=== PATIENT | male | born 1980 | race Two or more races ===

== ENCOUNTER 2025-03-07 21:10 | Emergency (ER) | payer BC, SELFPAY ==
[2025-03-07 21:13] VITALS: BP 176/99
[2025-03-07 21:35] LABS: Hematocrit 41.1 % (39.0-52.0); Hemoglobin 14.0 g/dL (13.0-18.0); Mean Corp Hgb Conc. 34.1 g/dL (33.0-37.0); Mean Corpuscular Volume 89.2 fL (80.0-94.0); Nucleated Red Blood Cells % 0 % (-); Platelet Count 240 10^3/uL (130-400); Red Cell Dist. Width 12.8 % (11.5-14.5)
[2025-03-07 21:49] LABS: ALT (SGPT) 27 U/L (0-50); AST (SGOT) 27 U/L (17-59); Albumin 4.6 g/dl (3.5-5.0); Alkaline Phosphatase 43 U/L (38-126); Blood Urea Nitrogen 21 mg/dl (9-20); Calcium 9.8 mg/dl (8.4-10.2); Carbon Dioxide 26 mmol/L (22-30); Chloride 102 mmol/L (98-107); Glucose 107 mg/dl (70-99); Potassium 3.6 mmol/L (3.5-5.1); Sodium 137 mmol/L (135-145); Total Protein 7.5 g/dl (6.3-8.2); eGFR > 60.00
[2025-03-07 22:01] LABS: Troponin I < 0.012 ng/ml
[2025-03-07 23:29] VITALS: BP 163/82
[2025-03-08] VITALS: BP 141/88
[2025-03-08 01:00] VITALS: BP 115/76
--- NOTE | 2025-03-08 01:48 | ED.GENMED ---
History of Present Illness
General
Chief Complaint: Cardiac Symptoms
Source: patient
Exam Limitations: none
Time Seen by Provider: 03/08/25 01:23
Nursing documentation reviewed up to this point in time: agreed with
History of Present Illness
History of Present Illness:
45-year-old male with no past medical history who presents to the ER today with concerns of numbness and pain in his left shoulder, numbness in his left arm as well as numbness in his left leg. He describes this sensation as tingling. He denies
decreased sensation. He feels like parts of the left side of his body feel weird and different compared to the right. He has never had this before. He reports that compared to the onset of his symptoms, his symptoms have slowly been improving.
He has no chest pain. He has no family history of cardiac disease. He reports that when he is having the symptoms at home, family member checked his blood pressure and he noted to be very high. He does have a history of sleep apnea and uses CPAP.
He does not have any history of high blood pressure and does not take any medications for it. He does not smoke. He does not take any medication for cholesterol. He follows closely with his primary care provider. He denies headache. He denies
any neck or head trauma. He has no confusion, difficulty walking, facial droop, facial numbness or tingling at this time.
Review of Systems
Review of Systems
All Other Systems: ROS reviewed and negative except as documented in HPI and ROS
Phy Exam
Physical Exam
Physical Exam:
GEN: Well appearing, NAD, WDWN
Eyes: PERRLA, EOMs intact, no scleral icterus
HENT: NCAT, oral mucosa moist
Lungs: CTAB, no wheezes, rales, rhonchi, normal chest wall excursion
Cardiac: RRR, no M/R/G, no peripheral edema. Radial pulses 2+ bilat
Abdomen: Abdomen nondistended
Neuro: AO x 3, no focal deficits, normal finger-nose, [id number], normal gait, 5 out of 5 strength of bilateral upper extremities, sensation intact, NIH 0
MSK: No gross deformity or ecchymosis.
Skin: No rashes, petechiae. Normal color, no pallor or jaundice.
Psych: Calm, cooperative, proper hygiene
Scores
NIH Stroke Score
Level of Consciousness: 0 - Alert
LOC Questions: 0-Answers both correctly
LOC Commands: 0-Performs both correctly
Best Horizontal Gaze: 0-Normal
Visual Woo: 0=Normal, no visual loss
Facial Palsy: 0=Normal, symmetrical
Motor - Right Arm: 0=No drift 10 seconds
Motor - Left Arm: 0=No drift 10 seconds
Motor - Right Le-No drift 5 seconds
Motor - Left Le-No drift 5 seconds
Limb Ataxia: 0-Absent
Sensation: 0-Normal
Best Language: 0-No aphasia
Dysarthria: 0-Normal
Extinction and Inattention: 0-No abnormality
NIH Total Score:: 0
Course
Orders/Labs/Results
Orders:
Orders
03/07/25 21:15
Electrocardiogram (*1) Urgent
Reason for Study: Hypertension, Benign
EKG- Treatment ONCE
03/07/25 21:25
Complete Blood Count/With Diff Urgent
Comprehensive Metabolic Panel Urgent
Troponin I Urgent
03/08/25 01:59
CT Head W/o Iv Contrast Urgent
Comment:
Reason For Exam: Left sided paresthesias
03/08/25 02:04
Troponin I Urgent
Abnormal Lab Results
03/07/25
21:25
RBC 4.61 L 10^6/uL
(4.70-6.10)
Absolute Lymphs (auto) 4.5 H 10^3/uL
(1.2-3.4)
Absolute Monos (auto) 0.9 H 10^3/uL
(0.1-0.6)
Neutrophils % 39.5 L %
(42.2-75.2)
Monocytes % 9.9 H %
(1.7-9.3)
BUN 21 H mg/dl
(9-20)
Glucose 107 H mg/dl
(70-99)
03/07/25 21:25
03/07/25 21:25
Vital Signs
Initial and Last Documented VS:
Initial Vital Signs
Temp Pulse Resp BP Pulse Ox
97.6 F 68 16 176/99 100
03/07/25 21:13 03/07/25 21:13 03/07/25 21:13 03/07/25 21:13 03/07/25 21:13
Last Documented Vital Signs
Temp Pulse Resp BP Pulse Ox
97.6 F 57 21 134/90 98
03/07/25 21:13 03/08/25 02:45 03/08/25 02:45 03/08/25 02:00 03/08/25 05:07
MDM/Problems Addressed
Differential Diagnosis Includes:
ddx include herniated discs/nerve root impingement, electrolyte derangement, ACS, space occupying lesion, MS, CVA,
MDM/Problems Addressed:
45-year-old male presents to the ER today with concerns of left shoulder pain and intermittent left-sided paresthesias. He has never had this before. On physical exam he is well-appearing in no acute distress. He has no objective sensory loss.
His NIH is 0. He has no focal neurodeficit. He has normal gait. No facial droop. Normal speech. No chest pain at this time. Labs reviewed, lab work unremarkable. Troponin undetectable x 2. ECG shows normal sinus rhythm with rate of 79 with
no ischemic changes. However CAT scan of the head which showed no acute findings. Discussed case with ED attending. Patient symptoms are minimal at this time, could be related to cervical nerve root impingement, patient will require further
workup with neurology and his PCP. Patient expressed understanding. Discussed strict return precautions.
Chronic conditions affecting care:
n/a
*Pulse Oximetry
SaO2: 98
Oxygen Mode of Delivery: Room air
Patient hypoxic: no
*Critical Care Note
Total Time (30-74mins, 75-104mins- exclusive of procedures): Not Applicable
Data Reviewed
Review of Other/Old Records Reveals: Records (No prior ER physician documentation to review, no discharge summaries to review)
ED Attending Note
-
Portions of this chart may have been created with voice recognition software.� Occasional wrong word or��sound alike� substitutions may have occurred due to the inherent limitations of voice recognition software.
Discharge Plan
Departure
Patient Disposition: Home (Routine Discharge)
Date of Disposition: 03/08/25
Time of Disposition: 04:53
Patient with high blood pressure during this ER visit?: Yes
Condition: Good
Discharge Problem:
Paresthesias, Left shoulder pain
Instructions: BLOOD PRESSURE
Referrals:
Lesley Patel MD [Non-Admitting Privileges, Psychiatry] - Call in 1-3 days for appt
Joey Patel DO [Family Provider, Family Practice]
Activity Restrictions/Additional Instructions:
Please call the attached number to schedule appointment with Dr. Patel's office for further evaluation. Please continue monitor symptoms. Please follow-up with your primary care provider. PLEASE RETURN TO THE ER SHE DEVELOP AN ACUTE WORSENING
RETURN OR SYMPTOMS, INABILITY AMBULATE, CONFUSION, SPEECH CHANGES, FACIAL DROOP, CHEST PAIN, SHORTNESS OF BREATH, OR ANY OTHER SYMPTOMS WORRISOME TO YOU.
Interventions
Interventions:
*General Assessment Last Done: 03/07/25 23:57
*Neglect/Abuse Screening Last Done: 03/07/25 21:16
*ED COVID-19 Vaccine History Last Done: 03/07/25 23:57
*ED Influenza Vaccine History Last Done: 03/07/25 23:57
[facility] Risk Assessment Tool Last Done: 03/07/25 23:44
*Risk Screen - Suicide (C-SSRS) Last Done: 03/07/25 21:16
*Nursing Disposition Last Done: 03/08/25 05:07
ED- Cardiac Assessment Last Done: 03/08/25 04:58
ED- Pulmonary Assessment Last Done: 03/08/25 04:58
Discharge Date and Time
Discharge Date/Time: 03/08/25 05:08
Print Language: CZECH
[2025-03-08 02:00] VITALS: BP 134/90
[2025-03-08 02:35] LABS: Troponin I < 0.012 ng/ml
== END 2025-03-08 05:08 | disposition home or self-care (01) ==
LOC: EMR 21:10
PROVIDERS: Emergency Medicine; Physician Assistant; EMERGENCY PHYSICIAN Emergency Medicine; FAMILY PHYSICIAN Family Medicine
DX: R20.2 Paresthesia of skin (principal); M25.512 Pain in left shoulder; G47.30 Sleep apnea, unspecified
CPT/HCPCS: 99284; 70450; 80053; 84484; 85025; 93005